=== PATIENT | male | born 1985 | race Caucasian/White ===

== ENCOUNTER 2018-12-11 13:20 | Day surgery (SDC) | payer BC, OTHER ==
[2018-12-10 16:43] VITALS: BMI 36.6
[2018-12-11 14:07] LABS: ALBUMIN 4.1 g/dl (3.4-5.0); BILIRUBIN,TOTAL 0.4 mg/dL (0.2-1); CALCIUM 9.3 mg/dL (8.5-10.1); POTASSIUM 4.3 mmol/L (3.5-5.1); TOT PROT 7.1 g/dl (6.4-8.2)
[2018-12-11] MEDS ORDERED: BUPIVACAINE HCL/PF 0.25% (2.5MG/ML) 10 ML VIAL ONE (14:32)
[2018-12-11] MEDS ORDERED: PAPAVERINE HCL 30 MG/1 ML 10 ML VIAL NR ONE (14:32)
[2018-12-11] MEDS ORDERED: MIDAZOLAM HCL 2 MG/2 ML SINGLE DOSE VIAL ONE ×3 (15:03→16:03)
--- NOTE | 2018-12-11 15:19 | HP ---
History & Physical Update - History History: No Change - Physical Physical: No Change - Assessment Assessment: No Change - Plan Plan: No Change
[2018-12-11] MEDS ORDERED: ACETAMINOPHEN 1000 MG/100 ML VIAL (NON FORMULARY) IVPB ONE (15:21)
[2018-12-11] MEDS ORDERED: PROPOFOL 20 ML ONE ×2 (15:26→16:03)
[2018-12-11] MEDS ORDERED: IBUPROFEN 800 MG/8 ML IJ IVPB SCH (15:30)
[2018-12-11] MEDS ORDERED: ceFAZolin SODIUM 1 GM VIAL IVPB ONE (15:43)
[2018-12-11 20:32] VITALS: BP 130/71; PULSE 79; TEMP 98.2
--- NOTE | 2018-12-15 18:57 | PATH ---
Surgical Pathology Report Patient Name: YURIY VILLATORO [facility]. Rec. #: [id number] /Age/Gender: 1985 (Age: 33) / M Account: [id number] Location: [facility] SUR[facility] Taken: 12/11/2018 Received: 12/12/2018 Reported: 12/15/2018 Physicians: Yadiel Hughes M.D. Specimen(s) Received A: PORTION OF LEFT VARICOCELE B: PORTION OF RIGHT VARIOCOCELE Clinical History Scrotal Varices Final Diagnosis A. VARICOCELE, LEFT, PORTION, VARICOCELECTOMY: THICKENED AND DISTENDED VESSELS CONSISTENT WITH VARICOCELE. B. VARICOCELE, RIGHT, PORTION, VARICOCELECTOMY: RARE THICKENED VESSELS COMPATIBLE WITH VARICOCELE. Electronically Signed Alondra Cunningham M.D. Gross Description A. Received in formalin labeled "portion of left varicocele" is a white-lamas soft tissue measuring 0.5 x 0.3 x 0.3 cm. The specimen is submitted in one cassette. B. Received in formalin labeled "portion of right varicocele" are 2 irregular, white-lamas to pink lamas soft tissue measuring 0.2 and 0.3 cm in maximum dimension. The specimen is entirely submitted in one cassette. MLJoseZ/12/12/2018 javier/12/12/2018
--- NOTE | 2018-12-23 14:40 | OP ---
DATE OF OPERATION: 12/11/2018 PREOPERATIVE DIAGNOSIS: Bilateral varicoceles. POSTOPERATIVE DIAGNOSIS: Bilateral varicoceles. PROCEDURE: Microscopic bilateral varicocelectomies. SURGEON: Yadiel Hughes MD NURSING INSTRUCTOR: None. ESTIMATED BLOOD LOSS: Minimal. SPECIMENS: Portion of left and right varicoceles. DRAINS: None. PREOPERATIVE INDICATIONS: Patient is a 33-year-old male with bilateral varicoceles with groin pain. He comes to the OR today for excision. DESCRIPTION OF PROCEDURE: The patient was brought to the OR. Placed on the table in the supine position. Given a spinal anesthetic and IV antibiotics with a little bit of sedation. The groin was prepped and draped sterilely. Time-out was performed. Incision was made over the left groin at the superficial inguinal ring and carried down until the cord was identified. It was then pulled out of the incision. Jess drain was passed behind it. It was opened with microscopic assistance, and the veins were visualized. These veins were divided and ligated, and portions were sent off. The artery and vas deferens were seen and left uninjured. The cautery was then reintroduced back into the incision. The incision was closed in 2 layers. On the right side, a similar operation was performed. Incision was made over the superficial inguinal ring down until the cord was visualized. This was pulled out of the incision. A Jess drain was passed behind it. Using microscopic assistance, the cord was opened up. The veins were seen, divided, and ligated, and portion was sent off. The artery was identified and left alone. The vas deferens identified and left alone. At the end of the procedure, no evidence of injury tied to those structures. Wound was closed with 2 layers. Patient was woken up. Sean [id number]
== END 2018-12-11 20:25 | disposition home or self-care (01) ==
LOC: JASU-SURG 13:20
PROVIDERS: ATTEND Urology
PROC: 0VBH0ZZ Excision of Bilateral Spermatic Cords, Open Approach (ICD-10-PCS; principal; 2018-12-11 15:00)
DX: I86.1 Scrotal varices (principal); E66.01 Morbid (severe) obesity due to excess calories; G47.30 Sleep apnea, unspecified
CPT/HCPCS: 36415; 80053; 88304-TC; 94760